=== PATIENT | male | born 1955 | race African-American/Black ===

== ENCOUNTER 2018-01-28 16:56 | Emergency (ER) | payer MEDICARE, OTHER ==
[~2018-01-28] VITALS: Ht 165.1 cm; Wt 89.4 kg
[2018-01-28] MEDS ORDERED: METFORMIN HCL1000 M1 ORAL (17:05)
[2018-01-28] MEDS ORDERED: GLIMEPIRIDE1 MG ORAL (17:05)
[2018-01-28 17:08] VITALS: BP 157/81
[2018-01-28] MEDS ORDERED: Methocarbamol 500mg tab ORAL ONE (17:30)
[2018-01-28] MEDS ORDERED: Acetaminophen 500mg (ES) tab ORAL ONE (17:30)
--- NOTE | 2018-01-28 17:39 | Emergency Room Report ---
History of Present Illness General Chief Complaint: Pain Source: Patient Present Illness HPI 62-year-old male patient presents ER complaining of back pain times one month and left knee pain 1 week. Denies injury or trauma. Denies dysuria, hematuria , penile discharge. Denies history of kidney disease or kidney stones. Denies radiation of pain symptoms. Denies bowel or bladder incontinence. Reports history of left-sided stroke in 2010, reports improvement of symptoms since that time, able to walk and talk without difficulty problems with ambulation. Denies chest pain, shortness of breath, abdominal pain, fever, neck pain. Denies history of prostate problems. Denies hx of gout. Allergies: Coded Allergies: No Known Allergies (Unverified , 01/28/18) Patient History Past Medical History: see triage record Reviewed Nursing Documentation: PMH: Agreed; PSxH: Agreed Nursing Documentation-PMH Hx Diabetes: Yes Hx Cerebrovascular Accident: Yes - Left sided deficits Review of Systems All Other Systems: negative except mentioned in HPI Physical Exam Vital Signs Date Time Temp Pulse Resp B/P (MAP) Pulse Ox O2 Delivery O2 Flow Rate FiO2 01/28/18 17:01 98.2 95 16 157/81 96 Room Air 98.2 Sp02 EP Interpretation: reviewed, normal General Appearance: well appearing, no apparent distress, alert, GCS 15, non- toxic Head: normocephalic, atraumatic Eyes: bilateral eye normal inspection, bilateral eye PERRL ENT: hearing grossly normal, normal pharynx, no angioedema, normal voice, uvula midline, moist mucus membranes Neck: full range of motion Respiratory: lungs clear, normal breath sounds, no rhonchi, no respiratory distress, no accessory muscle use, no wheezing, speaking full sentences Cardiovascular #1: regular rate, rhythm, no edema Cardiovascular #2: 2+ dorsalis pedis (R), 2+ dorsalis pedis (L) Genitourinary: no CVA tenderness Musculoskeletal: back normal, digits/nails normal, gait/station normal, normal range of motion, non-tender, no calf tenderness, Jodi's Sign negative, other - No bony depression, no spinal process tenderness; No laxity with varus or valgus strength, negative anterior and posterior drawer, no bony deformity, no swelling or erythema Neurologic: alert, oriented x3, responsive, motor strength/tone normal, SLR negative, sensory intact Psychiatric: mood/affect normal Medical Decision Making PA Attestation Dr. Adames is my supervising Physician whom patient management has been discussed with. Diagnostic Impression: Primary Impression: Knee pain Additional Impression: Back pain ER Course Pt. presents to the ED c/o left knee and left sided mid back pain. Ddx considered but are not limited to fracture, sprain, strain, contusion, dislocation, arthritis, gout. No erythema, no warmth to touch, no fever, nontoxic appearing, low suspicion for septic joint. No bony tophi, no joint warmth, low suspicion for gout. Vital signs: are WNL, pt. is afebrile Ordered X-ray and pain medication. ER COURSE Provided with pain medication. CURES report reviewed. PE benign, straight leg raise negative, no recent injury, no TTP on PE with distraction, no radiation of pain symptoms, complains of pain on mid-left back however does not have TTP on PE with distraction, does not require imaging of the lumbar spine at this time. back pain likely muscular in nature, ordered UA to rule out underlying pathology. UA negative for nitrites, 0-2 WBCs, no occult hematuria, low suspicion for UTI or kidney damage indicating possible nephrolithiasis at this time. Does not require further imaging or labs or treatment with antibiotics at this time. An X-ray of the left knee was ordered shows no acute disease per the preliminary reading. no calf pain, negative Homans sign, low suspicion for DVT. patient walking talking without difficulty, no focal neuro deficits, no chest pain, shortness of breath, suspicion for underlying cerebrovascular event, does not require labs at this time. pain and knee possibly related to patient compensating for back pain while walking. Instructed on stretching exercises, recommend weight loss. Mohan wrap applied to left knee, Neurovascularly intact as checked by me. Patient instructed on RICE method: rest, ice, compression, elevation for knee. Patient instructed on rest, ice and heat for back. Patient instructed to be WBAT. patient reports pain symptoms improved since arrival to ER. Declines crutches, able to ambulate independently without difficulty, OK for discharge. Followup with primary care provider. Discuss referral to ortho/pain management/ PT as needed. Discuss further imaging with MRI/CT as needed. DISCHARGE: -Rx provided for Tylenol for pain symptoms. -Rx provided for Methocarbamol. SE drowsiness, do not drink, drive, or operate heavy machinery while using. -Rx provided for Lidocaine patches. At this time pt. is stable for d/c to home. Patient is resting comfortably, in no acute distress, nontoxic appearing, talking without difficulty. Will provide printed patient care instructions, and any necessary prescriptions. Patient instructed to follow with primary care provider in 3 - 5 days and to request further follow-up as needed. Care plan and follow up instructions have been discussed with the patient prior to discharge. Take medications as directed. Patient questions asked and answered. Patient reports understanding and agreement to treatment plan. ER precautions given, patient instructed to return to ER immediately for any new or worsening of symptoms. - Please note that this Emergency Department Report was dictated using [employer] marketing analyst technology software, occasionally this can lead to erroneous entry secondary to interpretation by the dictation equipment. Labs Test 01/28/18 17:37 Urine Color Pale yellow Urine Appearance Clear Urine pH 5 (4.5-8.0) Urine Specific [place] 1.010 (1.005-1.035) Urine Protein 2+ (NEGATIVE) Urine Glucose (UA) 4+ (NEGATIVE) Urine Ketones Negative (NEGATIVE) Urine Occult Blood Negative (NEGATIVE) Urine Nitrite Negative (NEGATIVE) Urine Bilirubin Negative (NEGATIVE) Urine Urobilinogen Normal MG/DL (0.0-1.0) Urine Leukocyte Esterase Negative (NEGATIVE) Urine RBC 0-2 /HPF (0 - 0) Urine WBC 0-2 /HPF (0 - 0) Urine Squamous Epithelial Cells None /LPF (NONE/OCC) Urine Bacteria Few /HPF (NONE) Other X-Ray Diagnostic Results Other X-Ray Diagnostic Results : X-Ray ordered: Left knee # of Views/Limited Vs Complete: 3 View Indication: Pain EP Interpretation: Yes PA Xray: Interpretation reviewed, by supervising MD, and agrees with findings. Interpretation: no dislocation, no soft tissue swelling, no fractures Impression: No acute disease PA Scribe Text Nicola Degroot PAJoanna Last Vital Signs Date Time Temp Pulse Resp B/P (MAP) Pulse Ox O2 Delivery O2 Flow Rate FiO2 01/28/18 17:08 98.2 74 16 157/81 96 Room Air 98.2 Disposition: HOME, SELF-CARE Condition: Stable Scripts Methocarbamol* (ROBAXIN*) 500 Mg Tablet 500 MG PO BID, #21 TAB 0 Refills Prov: Hilton Degroot 01/28/18 Lidocaine (Lidocaine) 1 Each Adh..patch 700 MG TP DAILY for 7 Days, #7 PATCH Prov: Hilton Degroot 01/28/18 Acetaminophen* (TYLENOL EXTRA STRENGTH*) 500 Mg Tablet 500 MG ORAL Q8H PRN for Prn Headache/Temp > 101, #30 TAB 0 Refills Prov: Hilton Degroot 01/28/18 Patient Instructions: Back Pain, Adult, Knee Pain, Trto-um-Puca Additional Instructions: Patient instructed to follow up with primary care provider and discuss further referral to orthopedics, physical therapy, etc. Patient instructed on RICE method: rest, ice, compression, elevation. Patient instructed to WBAT. Take medications as directed. SE drowsiness, do not take prior to drinking, driving, or operative heavy machinery. Patient questions asked and answered. ER precautions given, patient instructed to return to ER immediately for any new or worsening of symptoms. Hilton Degroot Jan 28, 2018 17:39
[2018-01-28 17:50] LABS: APPEARANCE,URINE CLEAR; BILIRUBIN, URINE NEGATIVE (NEGATIVE); COLOR,URINE PALE YELLOW; GLUCOSE, URINE (UA) 4+ (NEGATIVE); KETONES,URINE NEGATIVE (NEGATIVE); LEUKOCYTE ESTERASE ,URINE NEGATIVE (NEGATIVE); NITRITE,URINE NEGATIVE (NEGATIVE); PH,URINE 5 (4.5-8.0); PROTEIN,URINE 2+ (NEGATIVE); UROBILINOGEN,URINE NORMAL MG/DL (0.0-1.0)
[2018-01-28] MEDS ORDERED: LIDOCAINE700 M1 TP (18:11)
[2018-01-28] MEDS ORDERED: TYLENOL EXTRA500 MG ORAL (18:11)
[2018-01-28] MEDS ORDERED: ROBAXIN500 MG PO (18:11)
[2018-01-28 19:30] VITALS: BP 143/78
--- NOTE | 2018-01-28 19:30 | Diagnostic Imaging Report ---
EXAM: XR Left Knee, 3 views CLINICAL HISTORY: PAIN TECHNIQUE: Three views of the left knee. COMPARISON: No relevant prior studies available. FINDINGS: Bones/joints: Unremarkable. No visible displaced fracture. No dislocation. No osseous erosions. Incidental note of a quadriceps tendon enthesophyte along the superior patella Visualized joint spaces appear unremarkable. Soft tissues: Unremarkable. No radiodense foreign bodies. No soft tissue gas lucencies. IMPRESSION: Unremarkable left knee x-rays.
[2018-01-28 19:40] VITALS: BP 143/78
== END 2018-01-28 19:56 | disposition home or self-care (01) ==
LOC: EMR 17:30
DX: M54.9 Dorsalgia, unspecified (principal); M25.562 Pain in left knee; Z86.73 Personal history of transient ischemic attack (TIA), and cerebral infarction without residual deficits
CPT/HCPCS: 81003; 99284

== ENCOUNTER 2018-08-27 19:03 | Emergency (ER) | payer MEDICARE, OTHER ==
[~2018-08-27] VITALS: Ht 167.6 cm; Wt 83.0 kg
[~2018-08-27 19:03] MED LIST: GLIMEPIRIDE1 MG ORAL; LIDOCAINE700 M1 TP; METFORMIN HCL1000 M1 ORAL; ROBAXIN500 MG PO; TYLENOL EXTRA500 MG ORAL
[2018-08-27] MEDS ORDERED: Sodium Chloride 550 ML IV SCH (19:30)
--- NOTE | 2018-08-27 19:30 | NUR ---
ED Nurse Note: Pt states R arm is painful and tniging feeling for 2 weeks, and his blood sugar is 470, BP is 195/106 now. AO4. NAD. Family at bedside. Attached to monitor.
--- NOTE | 2018-08-27 19:50 | Emergency Room Report ---
History of Present Illness General Chief Complaint: Abnormal Labs Source: Patient Present Illness HPI Patient presents with diabetes out of control. He's felt weak and ill for one week. His been waking up with sweats at night however his sugars have not been low at that time. He's had polyuria and polydipsia. Also is complaining about change in vision and also constipation. He denies any chest pain exertional dyspnea orthopnea. There is no edema or calf pain. He denies any dysuria, nausea, vomiting. When this happened before he had to be in the hospital for 8-9 hours in the emergency room and did not stay overnight -he refers to it as a "tune up". He takes insulin. The patient drinks alcohol. The last time he drank was a week ago. He drinks tequila and beer. He also smokes cigarettes. The patient's also complaining about right arm pain. It's been keeping her awake at night. He feels it burning from his hand up to his elbow. There's been no trauma. He has been told this is due to arthritis. Patient takes 40 units of Lantus a day. (Recently increased.) He states his been losing weight. He has had occasional palpitations. Denies any dizziness with these episodes. Allergies: Coded Allergies: No Known Allergies (Unverified , 01/28/18) Patient History Past Medical History: see triage record Social History: Reports: smoking, alcohol use, drug use - See tox screen Social History Narrative and disabled Reviewed Nursing Documentation: PMH: Agreed; PSxH: Agreed Nursing Documentation-[facility] Past Medical History: No Stated History Hx Hypertension: Yes Hx Diabetes: Yes Hx Cerebrovascular Accident: Yes - stroke 2010 Review of Systems All Other Systems: negative except mentioned in HPI Physical Exam Vital Signs Date Time Temp Pulse Resp B/P (MAP) Pulse Ox O2 Delivery O2 Flow Rate FiO2 08/27/18 19:16 98.4 101 20 195/106 98 Room Air Sp02 EP Interpretation: reviewed, normal General Appearance: well appearing, no apparent distress, GCS 15 Head: normocephalic Eyes: left eye other - Stye; bilateral eye PERRL, bilateral eye Scleral Injection ENT: moist mucus membranes Neck: supple Respiratory: lungs clear, normal breath sounds Cardiovascular #1: no edema, tachycardia Cardiovascular #2: 2+ radial (R) Gastrointestinal: normal inspection, normal bowel sounds, non tender, no mass, non-distended, overweight Genitourinary: no CVA tenderness Musculoskeletal: back normal, gait/station normal, normal range of motion, no calf tenderness Neurologic: alert, oriented x3, grossly normal Psychiatric: mood/affect normal Skin: normal inspection, warm/dry Medical Decision Making Diagnostic Impression: Primary Impression: Hyperglycemia Additional Impressions: Renal insufficiency Hypertension Qualified Codes: I10 - Essential (primary) hypertension Cocaine abuse Unifocal PVCs Right arm pain ER Course Patient presents with hyperglycemia. Differential includes acute myocardial infarction, occult infection, renal failure, noncompliance amongst others. Evaluation will be with EKG, chest x-ray and labs. The patient will be treated with IV hydration and based on Accu-Chek after bolus I we will decide whether he needs to be treated with insulin. Clinically he is not in diabetic ketoacidosis however we will ascertain this based on his electrolytes. The pain in his right arm appears to be chronic. He will be treated with analgesia. EKG without injury. Chest x-ray No infiltrates or congestive heart failure. Labs with normal white count, renal sufficiency and hyperglycemia without acidosis. Tox screen positive for cocaine. After bolus glucose is to 294. Given 10 units regular given IV. Continue IV hydration. Glucose 171 discussed results with patient.. Blood pressure was elevated. A dose of his medication was given orally. Initial consideration was for admission to the hospital however with improvement with treatment the patient is stable for outpatient observation and treatment. He was given copies of his EKG and labs to take to his doctor. We discussed the positive cocaine results. He denies recent use. I suggested that he seek help from the alcohol and cocaine. The patient will see his private physician soon. He is advised to return if he is not doing well. Laboratory Tests Test 08/27/18 19:30 White Blood Count 7.8 K/UL (4.8-10.8) Red Blood Count 4.60 M/UL (4.70-6.10) L Hemoglobin 13.3 G/DL (14.2-18.0) L Hematocrit 39.2 % (42.0-52.0) L Mean Corpuscular Volume 85 FL (80-99) Mean Corpuscular Hemoglobin 28.9 PG (27.0-31.0) Mean Corpuscular Hemoglobin Concent 33.9 G/DL (32.0-36.0) Red Cell Distribution Width 12.6 % (11.6-14.8) Platelet Count 250 K/UL (150-450) Mean Platelet Volume 8.4 FL (6.5-10.1) Neutrophils (%) (Auto) 59.0 % (45.0-75.0) Lymphocytes (%) (Auto) 25.1 % (20.0-45.0) Monocytes (%) (Auto) 8.7 % (1.0-10.0) Eosinophils (%) (Auto) 5.0 % (0.0-3.0) H Basophils (%) (Auto) 2.2 % (0.0-2.0) H Prothrombin Time 9.9 SEC (9.30-11.50) Prothrombin Time INR 0.9 (0.9-1.1) PTT 27 SEC (23-33) Urine Color Pale yellow Urine Appearance Clear Urine pH 5 (4.5-8.0) Urine Specific [place] 1.015 (1.005-1.035) Urine Protein 3+ (NEGATIVE) H Urine Glucose (UA) 4+ (NEGATIVE) H Urine Ketones Negative (NEGATIVE) Urine Blood 1+ (NEGATIVE) H Urine Nitrite Negative (NEGATIVE) Urine Bilirubin Negative (NEGATIVE) Urine Urobilinogen Normal MG/DL (0.0-1.0) Urine Leukocyte Esterase Negative (NEGATIVE) Urine RBC 0-2 /HPF (0 - 0) H Urine WBC 0-2 /HPF (0 - 0) Urine Squamous Epithelial Cells Occasional /LPF Urine Bacteria None /HPF (NONE) Sodium Level 139 MMOL/L (136-145) Potassium Level 3.9 MMOL/L (3.5-5.1) Chloride Level 101 MMOL/L (98-107) Carbon Dioxide Level 27 MMOL/L (21-32) Anion Gap 12 mmol/L (5-15) Blood Urea Nitrogen 29 mg/dL (7-18) H Creatinine 1.4 MG/DL (0.55-1.30) H Estimate Glomerular Filtration Rate > 60 mL/min (>60) Glucose Level 328 MG/DL (74-106) H Calcium Level 9.6 MG/DL (8.5-10.1) Total Bilirubin 0.3 MG/DL (0.2-1.0) Aspartate Amino Transferase (AST) 29 U/L (15-37) Alanine Aminotransferase (ALT) 35 U/L (12-78) Alkaline Phosphatase 104 U/L (46-116) Total Creatine Kinase 254 U/L (26-308) Troponin I 0.013 ng/mL (0.000-0.056) Pro-B-Type Natriuretic Peptide 185 pg/mL (0-125) H Total Protein 7.6 G/DL (6.4-8.2) Albumin 3.7 G/DL (3.4-5.0) Globulin 3.9 g/dL Albumin/Globulin Ratio 0.9 (1.0-2.7) L Lipase 381 U/L (73-393) Urine Opiates Screen Negative (NEGATIVE) Urine Barbiturates Screen Negative (NEGATIVE) Phencyclidine (PCP) Screen Negative (NEGATIVE) Urine Amphetamines Screen Negative (NEGATIVE) Urine Benzodiazepines Screen Negative (NEGATIVE) Urine Cocaine Screen Positive (NEGATIVE) H Urine Marijuana (THC) Screen Negative (NEGATIVE) EKG Diagnostic Results Rate: normal Rhythm: NSR ST Segments: other - Occasional PVCs unifocal Rhythm Strip Diag. Results EP Interpretation: yes Rhythm: NSR, other - Rate 98, unifocal PVCs Chest X-Ray Diagnostic Results Chest X-Ray Diagnostic Results : Chest X-Ray Ordered: Yes # of Views/Limited/Complete: 1 View Indication: Other EP Interpretation: Yes Interpretation: no consolidation, no effusion, no pneumothorax, other - Slight cardiomegaly Impression: Other Electronically Signed by: Electronically signed by Romero Gambino MD Last Vital Signs Date Time Temp Pulse Resp B/P (MAP) Pulse Ox O2 Delivery O2 Flow Rate FiO2 08/27/18 21:45 98.4 84 20 177/104 98 Room Air Status: improved Disposition: HOME, SELF-CARE Condition: Improved Romero Gambino MD Aug 27, 2018 19:50
[2018-08-27 20:00] LABS: APPEARANCE,URINE CLEAR; BILIRUBIN, URINE NEGATIVE (NEGATIVE); COLOR,URINE PALE YELLOW; GLUCOSE, URINE (UA) 4+ (NEGATIVE); KETONES,URINE NEGATIVE (NEGATIVE); LEUKOCYTE ESTERASE ,URINE NEGATIVE (NEGATIVE); NITRITE,URINE NEGATIVE (NEGATIVE); PH,URINE 5 (4.5-8.0); PROTEIN,URINE 3+ (NEGATIVE); UROBILINOGEN,URINE NORMAL MG/DL (0.0-1.0)
[2018-08-27] MEDS ORDERED: Morphine Sulfate 4mg/ml Inj (IV USE ONLY) IVP ONE (20:00)
[2018-08-27] MEDS ORDERED: LEVEMIR FL100 UNIT/1 SUBQ (20:06)
[2018-08-27] MEDS ORDERED: GLYBURIDE5 MG PO (20:06)
[2018-08-27] MEDS ORDERED: HYDRALAZINE HCL25 M1 ORAL (20:06)
[2018-08-27] MEDS ORDERED: ASPIR 8181 MG ORAL (20:06)
[2018-08-27] MEDS ORDERED: LOSARTAN POTASS25 MG ORAL (20:06)
[2018-08-27 20:08] LABS: BASOPHILS % (AUTO) 2.2 % (0.0-2.0); HEMATOCRIT 39.2 % (42.0-52.0); HEMOGLOBIN 13.3 G/DL (14.2-18.0); LYMPHOCYTES % (AUTO) 25.1 % (20.0-45.0); MEAN CORPUSCULAR VOLUME 85 FL (80-99); MONOCYTES % (AUTO) 8.7 % (1.0-10.0); PLATELET COUNT 250 K/UL (150-450); RED CELL DISTRIBUTION WIDTH 12.6 % (11.6-14.8); WHITE BLOOD COUNT 7.8 K/UL (4.8-10.8)
[2018-08-27 20:21] LABS: ANION GAP 12 mmol/L (5-15); BLOOD UREA NITROGEN 29 mg/dL (7-18); CALCIUM 9.6 MG/DL (8.5-10.1); CARBON DIOXIDE 27 MMOL/L (21-32); CHLORIDE 101 MMOL/L (98-107); CREATININE 1.4 MG/DL (0.55-1.30); POTASSIUM 3.9 MMOL/L (3.5-5.1); SODIUM 139 MMOL/L (136-145)
[2018-08-27 20:25] LABS: INR 0.9 (0.9-1.1)
[2018-08-27] MEDS ORDERED: Insulin Human Regular 100units/ml 3ml IV ONE (20:30)
[2018-08-27 20:34] LABS: ALANINE AMINOTRANSFERASE 35 U/L (12-78); ALBUMIN 3.7 G/DL (3.4-5.0); ALBUMIN/GLOBULIN RATIO 0.9 (1.0-2.7); ALKALINE PHOSPHATASE 104 U/L (46-116); ASPARTATE AMINO TRANSFERASE 29 U/L (15-37); BILIRUBIN,TOTAL 0.3 MG/DL (0.2-1.0); CREATINE KINASE 254 U/L (26-308)
[2018-08-27 20:38] VITALS: BP 177/104
[2018-08-27] MEDS ORDERED: Losartan 25mg tab ORAL ONE (20:45)
[2018-08-27 21:44] VITALS: BP 165/103
[2018-08-27 21:45] VITALS: BP 177/104
--- NOTE | 2018-08-27 21:45 | NUR ---
ED Nurse Note: Patient cleared for discharge per ERMD. AO4. NAD. VSS. Accompanied by family member. Patient given prescriptions and discharge instructions; verbalized understanding. IV and ID band removed. Patient ambulated out with all personal belongings with steady gait.
--- NOTE | 2018-08-28 13:20 | Diagnostic Imaging Report ---
. Indication: Chest pain Technique: XRAY Chest 1v Comparison: None Findings: Heart appears mildly enlarged. There is linear atelectasis or scarring in the left lower lung. Otherwise there is no focal airspace consolidation. No pleural effusion or pneumothorax. There are degenerative changes of the spine. No acute osseous normality. Impression: Linear atelectasis or scarring in the left lower lung. Apparent mild cardiomegaly although heart size may be exaggerated by AP technique.
--- NOTE | 2018-09-07 14:25 | Cardiology Report ---
APPROVED REPORT EKG Measurement Heart [id number] Sinus rhythm with occasional premature ventricular complexes Cannot rule out Anterior infarct, age undetermined Abnormal ECG
== END 2018-08-27 21:45 | disposition home or self-care (01) ==
LOC: EMR 19:46 → CANBEDREQ 21:30 → EMR 21:45
DX: E11.65 Type 2 diabetes mellitus with hyperglycemia (principal); N28.9 Disorder of kidney and ureter, unspecified; I10 Essential (primary) hypertension; F14.10 Cocaine abuse, uncomplicated; I49.3 Ventricular premature depolarization; M79.601 Pain in right arm; Z86.73 Personal history of transient ischemic attack (TIA), and cerebral infarction without residual deficits
CPT/HCPCS: 36415; 71045; 80053; 80307; 81003; 82550; 82962; 83690; 83880; 84484; 85025; 85610; 85730; 93005; 96361; 96374; 96375; 99284; J1815; J2270; J2405

== ENCOUNTER 2018-12-01 16:44 | Emergency (ER) | payer MEDICARE, OTHER ==
[~2018-12-01] VITALS: Ht 170.2 cm; Wt 82.6 kg
[~2018-12-01 16:44] MED LIST changes: +ASPIR 8181 MG ORAL; +GLYBURIDE5 MG PO; +HYDRALAZINE HCL25 M1 ORAL; +LEVEMIR FL100 UNIT/1 SUBQ; +LOSARTAN POTASS25 MG ORAL
--- NOTE | 2018-12-01 17:25 | Diagnostic Imaging Report ---
EXAM: CT Head Without Intravenous Contrast CLINICAL HISTORY: PAIN TECHNIQUE: Axial computed tomography images of the head/brain without intravenous contrast. CTDI is 70 mGy and DLP is 1337 mGy-cm. One or more of the following dose reduction techniques were used: automated exposure control, adjustment of the mA and/or kV according to patient size, use of iterative reconstruction technique. COMPARISON: No relevant prior studies available. FINDINGS: Brain: No acute intracranial hemorrhage or cortical ischemia. Right basal ganglia small chronic lacunar infarct. Ventricles: Unremarkable. No ventriculomegaly. Bones/joints: Unremarkable. No acute fracture. Soft tissues: Unremarkable. Sinuses: Left maxillary sinus opacity. Mastoid air cells: Unremarkable as visualized. IMPRESSION: No acute intracranial hemorrhage or cortical ischemia. Right basal ganglia small chronic lacunar infarct.
[2018-12-01 17:48] VITALS: BP 184/93
[2018-12-01 17:52] LABS: BASOPHILS % (AUTO) 1.8 % (0.0-2.0); HEMATOCRIT 38.6 % (42.0-52.0); HEMOGLOBIN 12.8 G/DL (14.2-18.0); LYMPHOCYTES % (AUTO) 32.6 % (20.0-45.0); MEAN CORPUSCULAR VOLUME 84 FL (80-99); MONOCYTES % (AUTO) 3.9 % (1.0-10.0); NEUTROPHILS % (AUTO) 55.7 % (45.0-75.0); PLATELET COUNT 303 K/UL (150-450); RED BLOOD COUNT 4.62 M/UL (4.70-6.10); RED CELL DISTRIBUTION WIDTH 12.3 % (11.6-14.8); WHITE BLOOD COUNT 7.5 K/UL (4.8-10.8)
--- NOTE | 2018-12-01 18:00 | NUR ---
ED Nurse Note: pt walked in with c/o stroke like symptoms x 1 week blood and urine sent ct done . pt speaking in clear sentences no facial drop or dift noted pt ambulates with strong steady gait.
[2018-12-01 18:03] LABS: INR 0.9 (0.9-1.1)
[2018-12-01 18:04] LABS: ANION GAP 9 mmol/L (5-15); BLOOD UREA NITROGEN 21 mg/dL (7-18); CALCIUM 9.5 MG/DL (8.5-10.1); CARBON DIOXIDE 26 MMOL/L (21-32); CHLORIDE 105 MMOL/L (98-107); CREATININE 1.7 MG/DL (0.55-1.30); POTASSIUM 3.9 MMOL/L (3.5-5.1); SODIUM 140 MMOL/L (136-145)
[2018-12-01 18:09] LABS: ALANINE AMINOTRANSFERASE 37 U/L (12-78); ALBUMIN 3.5 G/DL (3.4-5.0); ALBUMIN/GLOBULIN RATIO 0.8 (1.0-2.7); ALKALINE PHOSPHATASE 86 U/L (46-116); ASPARTATE AMINO TRANSFERASE 25 U/L (15-37); BILIRUBIN,TOTAL 0.2 MG/DL (0.2-1.0); CHOLESTEROL 139 MG/DL (< 200); HDL CHOLESTEROL 46 MG/DL (40-60); TRIGLYCERIDES 104 MG/DL (30-150)
[2018-12-01] MEDS ORDERED: MEN'S 50 PLUS1 EACH PO (18:14)
[2018-12-01 19:11] VITALS: BP 161/100
--- NOTE | 2018-12-01 19:12 | NUR ---
ER Nurse Note: Pt a&ox4, BP elevated 161/100, ERMD notifed. Pt has full sensation in all extremities. No facial droop, no slurred speech, face symmetry. No signs osf distress. Will continue to montior.
--- NOTE | 2018-12-01 19:16 | NUR ---
HAND-OFF: Report given to Natali.
--- NOTE | 2018-12-01 19:58 | Emergency Room Report ---
History of Present Illness General Chief Complaint: Stroke Symptoms Source: Patient Present Illness HPI Patient presents to the emergency department today complaining of weakness generally and numbness in left upper extremity. Patient states that he feels dizzy at times. Symptoms have been going on for about a week. Patient states that he was diagnosed with a TIA in the past. Or CVA in the past. He is uncertain and feels that he might be having another one. Patient is brought here by his . He denies any chest pain shortness of breath. Denies any focal weakness. No other complaints are noted. Symptoms noted to be moderate to severe. No other modifying factors. No other associated signs and symptoms. No other complaints were noted. Allergies: Coded Allergies: No Known Allergies (Unverified , 01/28/18) Patient History Past Medical History: DM, HTN, CVA/TIA Past Surgical History: none Pertinent Family History: none Social History: Denies: smoking, alcohol use, drug use Reviewed Nursing Documentation: PMH: Agreed; PSxH: Agreed Nursing Documentation-PMH Past Medical History: No History, Except For Hx Hypertension: Yes Hx Diabetes: Yes Hx Cerebrovascular Accident: Yes - Last one was in 2010 Review of Systems All Other Systems: negative except mentioned in HPI Physical Exam Vital Signs Date Time Temp Pulse Resp B/P (MAP) Pulse Ox O2 Delivery O2 Flow Rate FiO2 12/01/18 16:59 98.6 102 24 177/102 98 Room Air Sp02 EP Interpretation: reviewed, normal General Appearance: normal inspection, well appearing, no apparent distress, alert Head: atraumatic Eyes: bilateral eye normal inspection ENT: normal ENT inspection, hearing grossly normal, normal voice Neck: normal inspection, full range of motion, supple, no bony tend Respiratory: normal inspection, lungs clear, normal breath sounds, no respiratory distress, no retraction, no wheezing Cardiovascular #1: regular rate, rhythm, no edema Gastrointestinal: normal inspection, normal bowel sounds, non tender, soft, no guarding, no hernia Genitourinary: no CVA tenderness Musculoskeletal: normal inspection, back normal, normal range of motion Neurologic: normal inspection, alert, responsive, speech normal Psychiatric: normal inspection, judgement/insight normal, mood/affect normal Skin: normal inspection, normal color, no rash Medical Decision Making Diagnostic Impression: Primary Impression: CVA (cerebral vascular accident) Additional Impression: TIA (transient ischemic attack) ER Course Patient presents to the emergency department today with acute weakness generally as well as numbness and tingling left upper extremity with history of strokes. Symptoms have been going on for 1 week. Differential diagnoses include acute ischemic stroke, atypical presentation of a migraine, paresthesias , seizures just to name a few. Given the severity of the patient's presentation I felt this is a highly complex patient. This patient required extensive workup. Given patient's presentation patient did not meet TPA criteria. Patient symptoms are relatively mild. Patient is outside the window. With last known time of normal and normal at time of onset was a week ago. However given patient's presentation high risk for TIA CVA I felt the patient require admission for further treatment and monitoring. Likely will require neurologic follow-up and evaluation. Case was discussed with Dr. Menendez. Patient is stable for transfer and will be transferred to outside facility per patient's insurance. Labs Test 12/01/18 17:28 White Blood Count 7.5 K/UL (4.8-10.8) Red Blood Count 4.62 M/UL (4.70-6.10) Hemoglobin 12.8 G/DL (14.2-18.0) Hematocrit 38.6 % (42.0-52.0) Mean Corpuscular Volume 84 FL (80-99) Mean Corpuscular Hemoglobin 27.7 PG (27.0-31.0) Mean Corpuscular Hemoglobin Concent 33.1 G/DL (32.0-36.0) Red Cell Distribution Width 12.3 % (11.6-14.8) Platelet Count 303 K/UL (150-450) Mean Platelet Volume 7.0 FL (6.5-10.1) Neutrophils (%) (Auto) 55.7 % (45.0-75.0) Lymphocytes (%) (Auto) 32.6 % (20.0-45.0) Monocytes (%) (Auto) 3.9 % (1.0-10.0) Eosinophils (%) (Auto) 6.0 % (0.0-3.0) Basophils (%) (Auto) 1.8 % (0.0-2.0) Prothrombin Time 9.8 SEC (9.30-11.50) Prothromb Time International Ratio 0.9 (0.9-1.1) Activated Partial Thromboplast Time 24 SEC (23-33) Sodium Level 140 MMOL/L (136-145) Potassium Level 3.9 MMOL/L (3.5-5.1) Chloride Level 105 MMOL/L (98-107) Carbon Dioxide Level 26 MMOL/L (21-32) Anion Gap 9 mmol/L (5-15) Blood Urea Nitrogen 21 mg/dL (7-18) Creatinine 1.7 MG/DL (0.55-1.30) Estimat Glomerular Filtration Rate 49.7 mL/min (>60) Glucose Level 243 MG/DL (74-106) Calcium Level 9.5 MG/DL (8.5-10.1) Total Bilirubin 0.2 MG/DL (0.2-1.0) Aspartate Amino Transf (AST/SGOT) 25 U/L (15-37) Alanine Aminotransferase (ALT/SGPT) 37 U/L (12-78) Alkaline Phosphatase 86 U/L (46-116) Troponin I 0.006 ng/mL (0.000-0.056) Total Protein 8.1 G/DL (6.4-8.2) Albumin 3.5 G/DL (3.4-5.0) Globulin 4.6 g/dL Albumin/Globulin Ratio 0.8 (1.0-2.7) Triglycerides Level 104 MG/DL (30-150) Cholesterol Level 139 MG/DL (< 200) LDL Cholesterol 77 mg/dL (<100) HDL Cholesterol 46 MG/DL (40-60) Cholesterol/HDL Ratio 3.0 (3.3-4.4) EKG Diagnostic Results Rate: normal Rhythm: NSR ST Segments: no acute changes Rhythm Strip Diag. Results EP Interpretation: yes Rate: 98 Rhythm: NSR, no PVC's, no ectopy CT/MRI/US Diagnostic Results CT/MRI/US Diagnostic Results : Imaging Test Ordered: CT head: Negative per radiology. Last Vital Signs Date Time Temp Pulse Resp B/P (MAP) Pulse Ox O2 Delivery O2 Flow Rate FiO2 12/01/18 19:11 98.5 80 15 161/100 99 Room Air Status: improved Disposition: XFER SHT-TRM HOSP Condition: Serious Referrals: [facility],REFERRING (PCP) Anuj Da Silva MD Dec 01, 2018 19:58
[2018-12-01 20:15] VITALS: BP 170/88
--- NOTE | 2018-12-01 20:17 | NUR ---
ED Nurse Note: MD aware of elevated BP . Pt showing no signs of distress. VSS otherwise. Will continue to monitor.
--- NOTE | 2018-12-01 20:39 | NUR ---
ED Nurse Note: Pt resting comfortably. Showing no signs of distress. VSS aside from elevated BP. Will continue to monitor.
[2018-12-01 20:55] VITALS: BP 144/78
--- NOTE | 2018-12-01 20:58 | NUR ---
ED Nurse Note: Report given to nurse @ [facility].
[2018-12-01 21:35] VITALS: BP 144/78
--- NOTE | 2018-12-01 21:35 | NUR ---
[facility] ambulance is here now.
--- NOTE | 2018-12-01 21:35 | NUR ---
ED Nurse Note: Pt picked up by [facility]. at bedside. All belongings taken with patient. Pt transferred with [id number]. VSS. Shows no signs of acute distress. Report given to nurse in [facility].
== END 2018-12-01 21:35 | disposition short-term general hospital (02) ==
LOC: EMR 17:18
DX: I63.9 Cerebral infarction, unspecified (principal); G45.9 Transient cerebral ischemic attack, unspecified; I10 Essential (primary) hypertension; E11.9 Type 2 diabetes mellitus without complications
CPT/HCPCS: 36415; 70450; 80053; 80061; 84484; 85025; 85610; 85730; 93005; 99285